=== PATIENT | male | born 1940 | race Caucasian/White ===

== ENCOUNTER → 2024-05-14 15:10 | Outpatient (REF) | payer OTHER, SELFPAY | LOC: RAD 15:10 | PROVIDERS: ATTENDING PHYSICIAN Internal Medicine Cardiovascular Disease; FAMILY PHYSICIAN Family Medicine | DX: I48.20 Chronic atrial fibrillation, unspecified (principal); R06.02 Shortness of breath; I25.10 Atherosclerotic heart disease of native coronary artery without angina pectoris; Z86.2 Personal history of diseases of the blood and blood-forming organs and certain disorders involving the immune mechanism | CPT/HCPCS: 71046 ==

== ENCOUNTER → 2024-05-16 13:56 | Outpatient (REF) | payer OTHER, SELFPAY | LOC: RCS 13:56 | PROVIDERS: ATTENDING PHYSICIAN Internal Medicine Cardiovascular Disease; FAMILY PHYSICIAN Family Medicine | DX: I48.20 Chronic atrial fibrillation, unspecified (principal); R06.02 Shortness of breath; I25.10 Atherosclerotic heart disease of native coronary artery without angina pectoris; Z86.2 Personal history of diseases of the blood and blood-forming organs and certain disorders involving the immune mechanism | CPT/HCPCS: 93306 ==

== ENCOUNTER → 2024-06-06 09:18 | Outpatient (REF) | payer OTHER, SELFPAY | LOC: RAD 09:18 | PROVIDERS: ATTENDING PHYSICIAN Internal Medicine Critical Care Medicine; FAMILY PHYSICIAN Family Medicine | DX: R79.89 Other specified abnormal findings of blood chemistry (principal); R06.02 Shortness of breath | CPT/HCPCS: 71275; Q9967 ==

== ENCOUNTER → 2024-06-26 10:23 | Outpatient (REF) | payer OTHER, SELFPAY | LOC: PET 10:23 | PROVIDERS: ATTENDING PHYSICIAN Internal Medicine Cardiovascular Disease | DX: I48.20 Chronic atrial fibrillation, unspecified (principal); R06.02 Shortness of breath; I25.10 Atherosclerotic heart disease of native coronary artery without angina pectoris; Z86.2 Personal history of diseases of the blood and blood-forming organs and certain disorders involving the immune mechanism | CPT/HCPCS: 78431; A9555; J2785 ==

== ENCOUNTER 2024-07-18 06:05 | Day surgery (SDC) | payer OTHER, SELFPAY ==
[2024-07-18 06:25] VITALS: BMI 22.9
[2024-07-18 06:39] VITALS: BP 196/123
[2024-07-18 06:43] VITALS: BP 195/114
[2024-07-18 06:44] VITALS: BP 198/96
[2024-07-18 06:50] VITALS: BP 198/96
[2024-07-18 06:58] LABS: Glucose - Point of Care 113 mg/dl (70-99)
[2024-07-18] MEDS: LOW STRENGTH ASPIRIN 81 MG PO (06:59)
[2024-07-18] MEDS: COZAAR 50 MG PO (07:28)
--- NOTE | 2024-07-18 07:45 | ITS.CL.CATH ---
[employer] - Catheterization
Cardiac Catheterization
Procedure Report:
RIGHT HEART CATHETERIZATION
Date of Procedure: July 18, 2024
Referring: Rylee Torres
INDICATION: Assess invasive hemodynamics
Hemodynamics (mmHg):
RA (m) : 14
RV (s/d,m) : 77/8, 13
PA (s/d, m) : 77/30, 50
PCWP (m) : 26
PA saturation: 58.7% on room air
AO saturation: 93% on room air (using non-invasive pulse ox)
SVC saturation: 61.8% on room air
Cardiac Output : 5.22 L/min
Cardiac Index : 2.63 L/min/m-2
Systemic vascular resistance: 1977 dsc^(-5)--based on non-invasive BP of 196/115 (147)
Pulmonary vascular resistance: 5.06 [facility]
RADIATION SUMMARY: Fluoro Time (min): 0.7, Dose (mGy): 5.97, DAP (Gy.cm2) : 1.01
CONCLUSION:
1. Significantly elevated right and left-sided filling pressures with severe pulmonary hypertension and normal cardiac output.
2. Significantly elevated systemic hypertension and systemic vascular resistance
Copy to: Rylee Torres
Alise Chowdhury MD, FACC, [facility]
[2024-07-18 08:17] VITALS: BP 194/108
[2024-07-18 08:32] VITALS: BP 176/84
[2024-07-18 08:37] LABS: Glucose - Point of Care 103 mg/dl (70-99)
[2024-07-18] MEDS: LASIX 40 MG IV (08:48)
== END 2024-07-18 09:25 | disposition home or self-care (01) ==
LOC: CATH 06:05
PROVIDERS: ATTENDING PHYSICIAN Internal Medicine Interventional Cardiology; FAMILY PHYSICIAN Family Medicine; OTHER PHYSICIAN Internal Medicine Cardiovascular Disease
DX: I27.20 Pulmonary hypertension, unspecified (principal); I10 Essential (primary) hypertension
CPT/HCPCS: 82962; 93451; C1894

== ENCOUNTER → 2024-08-13 13:47 | Outpatient (REF) | payer OTHER, SELFPAY | LOC: HWRAD 13:47 | PROVIDERS: ATTENDING PHYSICIAN Internal Medicine Critical Care Medicine; FAMILY PHYSICIAN Family Medicine | DX: R06.09 Other forms of dyspnea (principal); J90 Pleural effusion, not elsewhere classified | CPT/HCPCS: 71046 ==

== ENCOUNTER → 2025-03-15 12:00 | Outpatient (REF) | payer OTHER, SELFPAY | LOC: HWRAD 12:00 | PROVIDERS: ATTENDING PHYSICIAN Internal Medicine Cardiovascular Disease; FAMILY PHYSICIAN Family Medicine | DX: R06.02 Shortness of breath (principal) | CPT/HCPCS: 71046 ==

== ENCOUNTER → 2025-03-30 10:49 | Outpatient (REF) | payer OTHER, SELFPAY | LOC: RCS 10:49 | PROVIDERS: ATTENDING PHYSICIAN Internal Medicine Cardiovascular Disease; FAMILY PHYSICIAN Family Medicine | DX: R06.02 Shortness of breath (principal); I50.32 Chronic diastolic (congestive) heart failure | CPT/HCPCS: 93306; 93356 ==

== ENCOUNTER → 2025-04-11 10:02 | Outpatient (REF) | payer OTHER, SELFPAY | LOC: RAD 10:02 | PROVIDERS: ATTENDING PHYSICIAN Internal Medicine Cardiovascular Disease; FAMILY PHYSICIAN Family Medicine; REFERRING PHYSICIAN Internal Medicine Hematology & Oncology | DX: I51.7 Cardiomegaly (principal) | CPT/HCPCS: 78803; A9538 ==